=== PATIENT | male | born 2000 | race Caucasian/White ===

== ENCOUNTER 2022-05-16 22:14 | Emergency (ER) | payer OTHER ==
[2022-05-16 23:03] VITALS: RESP 16
[2022-05-17] MEDS ORDERED: DIPH,PERTUS(ACELL)TETVAC-LF 0.5 ML VIAL IM ONE (00:26)
--- NOTE | 2022-05-17 01:17 | ED ---
Head Injury HPI - General Chief complaint: Head Injury Stated complaint: [facility]-Head injury Time Seen by Provider: 05/17/22 00:16 Source: patient Mode of arrival: ambulatory Limitations: no limitations - History of Present Illness Initial comments: Patient is a 21-year-old male presenting with chief complaint of head injury. Patient was using equipment at work to lift a car, he was bent over and hit his head when he went to stand up straight. No loss of consciousness and no blood thinners. Patient states that he noticed a small amount of Bleeding from the Scalp. He reported to the ER for evaluation. He does not move his last tetanus shot was. No neck pain, vision or hearing, nausea, vomiting, dizziness, chest pain, difficulty breathing. - Related Data Allergies/Adverse reactions: Allergies Allergy/AdvReac Type Severity Reaction Status Date / Time No Known Allergies Allergy Verified 05/16/22 23:01 Review of Systems ROS Statement: Those systems with pertinent positive or pertinent negative responses have been documented in the HPI. ROS Other: All systems not noted in ROS Statement are negative. Past Medical History Past Medical History: No Reported History History of Any Multi-Drug Resistant Organisms: None Reported Past Surgical History: No Surgical Hx Reported Past Psychological History: No Psychological Hx Reported Smoking Status: Vaper Past Alcohol Use History: None Reported Past Drug Use History: None Reported General Exam Limitations: no limitations General appearance: alert, in no apparent distress Expanded Head exam: Present: laceration (Small less than 1 cm laceration to the scalp). Absent: raccoon eyes, aguillon's sign Eye exam: Present: normal appearance, PERRL, EOMI. Absent: scleral icterus, conjunctival injection, periorbital swelling Neck exam: Present: normal inspection. Absent: full ROM Respiratory exam: Present: normal lung sounds bilaterally. Absent: respiratory distress, wheezes, rales, rhonchi, stridor Cardiovascular Exam: Present: regular rate, normal rhythm, normal heart sounds. Absent: systolic murmur, diastolic murmur, rubs, gallop, clicks Extremities exam: Present: normal inspection, full ROM Back exam: Present: normal inspection Neurological exam: Present: alert, oriented X3, CN II-XII intact Expanded Patient oriented to: Present: person, place, time Speech: Present: fluid speech Cranial nerves: EOM's Intact: Normal, Facial Sensation: Normal Sensory exam: Upper Extremity Light Touch: Normal, Lower Extremity Light Touch: Normal Motor strength exam: RUE: 5, LUE: 5, RLE: 5, LLE: 5 Eye Response: (4) open spontaneously Motor Response: (6) obeys commands Verbal Response: (5) oriented Dennis Total: 15 Psychiatric exam: Present: normal affect, normal mood Skin exam: Present: warm, dry, normal color. Absent: rash Expanded Type of lesion: Present: laceration (Small less than 1 cm laceration to scalp.) Course Vital Signs 05/16/22 05/17/22 05/17/22 23:01 00:09 01:23 Temperature 98 F 98.3 F 97.8 F Pulse Rate 81 76 80 Respiratory 16 16 16 Rate Blood Pressure 126/83 142/103 124/81 O2 Sat by Pulse 99 99 100 Oximetry Medical Decision Making - Medical Decision Making Patient is a 21-year-old male presenting with chief complaint of head injury. Patient sustained a head injury while at work, he was sent over and when he went to stand up he hit his head on a metal device. Patient noticed some bleeding from the scalp. No loss of consciousness or blood thinners. Patient does not report his last tetanus was. Tetanus is updated here in the ER. On examination there is a small less than 1 cm laceration, bleeding is well controlled does not require closure, as it is too small. Follow-up with PCP. Report back to ER with any new or worsening symptoms. Discussed return parameters and answered all questions. Patient conveyed verbal understanding and agreed to the plan. I discussed this case in detail with my attending Dr. Her Disposition Clinical Impression: Laceration of scalp Disposition: HOME SELF-CARE Condition: Good Instructions (If sedation given, give patient instructions): Head Injury (ED), Post Concussion Syndrome (ED), Laceration Without Closure (ED) Additional Instructions: Follow-up with PCP. Report back to ER with any new or worsening symptoms. Take Motrin and Tylenol as needed for pain control. Is patient prescribed a controlled substance at d/c from ED?: No Referrals: None,Stated [Primary Care Provider] - 1-2 days Time of Disposition: 01:17
[2022-05-17 01:31] VITALS: BP 124/81; PULSE 80; TEMP 97.8
== END 2022-05-17 01:30 | disposition home or self-care (01) ==
LOC: EC 22:14
DX: S01.01XA Laceration without foreign body of scalp, initial encounter (principal); F12.90 Cannabis use, unspecified, uncomplicated; Z23 Encounter for immunization; X58.XXXA Exposure to other specified factors, initial encounter; Y93.F2 Activity, caregiving, lifting
CPT/HCPCS: 90471; 90715; 99283

== ENCOUNTER → 2024-03-17 | Outpatient (CLI) | payer OTHER ==
--- NOTE | 2024-03-17 13:22 | XR ---
EXAMINATION TYPE: XR hand complete 3 views LT DATE OF EXAM: 03/17/2024 Comparison: None Clinical History: 23-year-old male with pain, S69.92XA UNSP INJURY OF LEFT WRIST, HAND AND FINGE. Cru shing injury on 02/28/2024 to the third and fourth digits. Findings: There are oblique fractures of the third and fourth distal phalangeal shaka by 1.5 mm. The fracture occurs along the ulnar aspect of the tuft of the fourth finger and along the radial aspect o f the tuft of the third finger. Some softening of the fracture margins suggest subacute fractures. No other acute fracture, subluxation, dislocation is seen. Impression: Oblique fractures of the third and fourth distal phalangeal shaka minimally by 1.5 mm. Soft ening of the fracture margins suggests more subacute fractures.
== END | disposition home or self-care (01) ==
LOC: RADXRMAIN 12:44
PROVIDERS: ATTEND Nurse Practitioner Adult Health
DX: S52.592A Other fractures of lower end of left radius, initial encounter for closed fracture (principal)